=== PATIENT | female | born 1985 | race Asian ===

== ENCOUNTER 2019-10-30 18:00 | Emergency (ER) | payer OTHER ==
[~2019-10-30] VITALS: Ht 160 cm; Wt 50.8 kg
[2019-10-30 19:23] VITALS: BP 140/94
[2019-10-30] MEDS ORDERED: DexAMETHasone SOD PHOS 10MG/1ML VIAL INJ IM ONE (21:30)
[2019-10-30] MEDS ORDERED: HYDROcodone-ACET 10/325MG TAB PO ONE (21:30)
[2019-10-30] MEDS ORDERED: BACLOFEN 10 MG TAB PO ONE (21:30)
== END 2019-10-31 06:25 | disposition home or self-care (01) ==
LOC: ER 18:00 → EDBD 18:00 → ER 10-31 06:25
DX: M62.830 Muscle spasm of back (principal)
CPT/HCPCS: 96372; 99283; J1100

== ENCOUNTER 2021-04-21 20:13 | Emergency (ER) | payer MEDICAID, OTHER ==
[~2021-04-21] VITALS: Ht 165.1 cm; Wt 59.0 kg
[2021-04-21 21:21] VITALS: BP 118/80
[2021-04-21] MEDS ORDERED: IBUPROFEN 600 MG TAB PO ONE (21:45)
== END 2021-04-21 22:12 | disposition home or self-care (01) ==
LOC: ER 20:13
DX: G56.01 Carpal tunnel syndrome, right upper limb (principal)